=== PATIENT | female | born 1945 | race Caucasian/White ===

== ENCOUNTER → 2017-08-06 15:22 | Outpatient (CLI) | payer OTHER, SELFPAY ==
--- NOTE | 2017-08-06 15:25 | DI.MG.S_ITS ---
BILATERAL DIGITAL SCREENING MAMMOGRAM 3D/2D WITH CAD: 08/06/2017 CLINICAL: Routine screening. Comparison is made to exams dated: 06/24/2016 mammogram, 12/25/2015 mammogram, and 07/20/2015 mammogram - [facility]. The tissue of both breasts is heterogeneously dense. This may lower the sensitivity of mammography. Current study was also evaluated with a Computer Aided Detection (CAD) system. No significant masses, calcifications, or other findings are seen in either breast. There has been no significant interval change. IMPRESSION: NEGATIVE There is no mammographic evidence of malignancy. A 1 year screening mammogram is recommended. NOTE: For mammograms, a report in lay terms will be sent to the patient. Approximately 15% of breast malignancies will not be visualized mammographically. In the management of a palpable breast mass, a negative mammogram must not discourage biopsy of a clinically suspicious lesion. Electronically Signed By: Mehnaz lazcano/petey:08/06/2017 17:25:11 letter sent: Normal Exam ACR BI-RADS Category 1: Negative 3341F
== END ==
PROVIDERS: PCP Family Medicine; Visit Provider Family Medicine
DX: Z12.31 Encounter for screening mammogram for malignant neoplasm of breast (principal)
CPT/HCPCS: 77063; 77067

== ENCOUNTER → 2017-08-21 14:39 | Outpatient (CLI) | payer OTHER, SELFPAY ==
[2017-08-21 15:11] LABS: Hematocrit 36.3 % (36-46); Hemoglobin 12.3 g/dL (12.0-16.0); Mean Corpuscular Volume 76.5 fL (80-100); Platelet Count 143 X10^3/uL (150-400); Red Blood Cell Count 4.75 X10^6/uL (4.0-5.2); Red Cell Distribution Width 14.7 % (11.6-14.8)
[2017-08-21 15:21] LABS: Add Manual Diff / Slide Review YES
[2017-08-21 15:25] LABS: White Blood Cell Count 1.5 X10^3/uL (4.5-11.0)
[2017-08-21 15:38] LABS: Neutrophils Absolute Manual 60 /uL (3000-5900); Total Cells Counted 25
[2017-08-21 15:39] LABS: Anisocytosis 1+
[2017-08-21 15:40] LABS: Smudge Cells 1+
== END ==
PROVIDERS: PCP Family Medicine; Visit Provider Family Medicine
DX: D72.9 Disorder of white blood cells, unspecified (principal)
CPT/HCPCS: 36415; 85025

== ENCOUNTER → 2017-08-24 07:16 | Outpatient (CLI) | payer OTHER, SELFPAY ==
[2017-08-24 08:49] LABS: Hematocrit 36.4 % (36-46); Hemoglobin 12.3 g/dL (12.0-16.0); Mean Corpuscular HGB Conc 33.8 % (30-36); Mean Corpuscular Volume 76.9 fL (80-100); Platelet Count 127 X10^3/uL (150-400); Red Blood Cell Count 4.74 X10^6/uL (4.0-5.2)
[2017-08-24 08:54] LABS: Add Manual Diff / Slide Review YES; White Blood Cell Count 1.3 X10^3/uL (4.5-11.0)
[2017-08-24 09:23] LABS: Neutrophils Absolute Manual 104 /uL (3000-5900); Total Cells Counted 50
[2017-08-24 09:24] LABS: RBC Morphology Normal Morphology
[2017-08-24 18:24] LABS: Monotest Negative (Negative)
== END ==
PROVIDERS: PCP Family Medicine; Visit Provider Family Medicine
DX: D72.9 Disorder of white blood cells, unspecified (principal); M25.50 Pain in unspecified joint
CPT/HCPCS: 36415; 85025; 86318

== ENCOUNTER → 2017-09-30 07:10 | Outpatient (CLI) | payer OTHER, SELFPAY ==
--- NOTE | 2017-09-30 | DI.US.S_ITS ---
PROCEDURE: US ABDOMEN COMPLETE INDICATIONS: SPLENOMEGALY TECHNIQUE: Real-time scanning was performed of the abdominal and retroperitoneal organs, with image documentation. COMPARISON: [facility], CT, CHEST/ABD/PEL WITHOUT CONTRAST, 07/31/2015, 12:20. [facility], CT, THORAX WITHOUT CONTRAST, 05/11/2017, 15:19. FINDINGS: Liver: Liver is normal in size and homogeneous in echotexture. Gallbladder: The gallbladder appears normal Biliary ducts: Intrahepatic bile ducts are non-dilated. Extrahepatic bile duct caliber measures 5.5 mm. Normal is 6-7 mm or less in diameter, or 10 mm or less post-cholecystectomy. Pancreas: Visualized portions of the pancreas are sonographically normal. Spleen: Spleen is enlarged in size at 16.6 cm craniocaudad, and homogeneous in echotexture. Kidneys: Kidneys are normal in size and echotexture. Right kidney measures 10.9 cm long; left kidney measures 11.8 cm long. No hydronephrosis or nephrolithiasis. No solid masses. Aorta: Visualized aorta is normal in caliber at less than 3 cm. Iliacs: Proximal common iliac arteries are normal in caliber at less than 2.5 cm. IVC: Intrahepatic inferior vena cava is patent. Miscellaneous: No free abdominal fluid. IMPRESSION: A craniocaudad length of the spleen is 16.6 cm, above the upper limits of normal at 13 cm. Etiology is uncertain, there is no ascites, no hepatic abnormality is associated. The prior craniocaudad length of the spleen during CT scanning 07/31/15 was 10.0 cm. Dictated by: Osmin Smith M.D. on 09/30/2017 at 8:13 Approved by: Osmin Smith M.D. on 09/30/2017 at 8:16
== END ==
PROVIDERS: PCP Family Medicine; Visit Provider Family Medicine
DX: R16.1 Splenomegaly, not elsewhere classified (principal)
CPT/HCPCS: 76700

== ENCOUNTER → 2018-04-10 08:06 | Outpatient (CLI) | payer OTHER, SELFPAY ==
[2018-04-10 08:25] LABS: Appearance Urine UA CLEAR; Bilirubin Urine UA NEGATIVE (NEGATIVE); Color Urine UA YELLOW; Glucose Urine UA NEGATIVE (Negative); Ketones Urine UA NEGATIVE (NEGATIVE); Leukocyte Esterase Urine UA NEGATIVE (NEGATIVE); Nitrite Urine UA NEGATIVE (Negative); Occult Blood Urine UA TRACE-LYSED (Negative); Protein Urine UA NEGATIVE (Negative); Specific Gravity Urine UA 1.025 (1.000-1.035); Urobilinogen Urine UA 0.2 E.U./dL (0.2)
[2018-04-10 08:28] LABS: Bacteria Urine Moderate (10-30); Culture Indicated Urine Cult Not Indicated; RBC Urine 1-5/HPF (0-5/HPF); Squamous Epithelial Cell Urine 5-10 /HPF; WBC Urine 1-5/HPF (0-5/HPF)
== END ==
PROVIDERS: PCP Family Medicine; Visit Provider Nurse Practitioner Family
DX: R35.0 Frequency of micturition (principal)
CPT/HCPCS: 81001

== ENCOUNTER → 2018-08-09 15:21 | Outpatient (CLI) | payer OTHER, SELFPAY ==
--- NOTE | 2018-08-09 15:23 | DI.MG.S_ITS ---
BILATERAL DIGITAL SCREENING MAMMOGRAM 3D/2D WITH CAD: 08/09/2018 CLINICAL: Routine screening. Comparison is made to exams dated: 08/06/2017 mammogram, 06/24/2016 mammogram, and 06/12/2015 mammogram - [facility]. The tissue of both breasts is heterogeneously dense. This may lower the sensitivity of mammography. Current study was also evaluated with a Computer Aided Detection (CAD) system. No significant masses, calcifications, or other findings are seen in either breast. There has been no significant interval change. IMPRESSION: NEGATIVE There is no mammographic evidence of malignancy. A 1 year screening mammogram is recommended. This exam was interpreted at Station ID: [id number]. NOTE: For mammograms, a report in lay terms will be sent to the patient. Approximately 15% of breast malignancies will not be visualized mammographically. In the management of a palpable breast mass, a negative mammogram must not discourage biopsy of a clinically suspicious lesion. Electronically Signed By: Arpan candelario/petey:08/10/2018 11:56:30 letter sent: Normal Exam ACR BI-RADS Category 1: Negative 3341F
--- NOTE | 2018-08-09 15:25 | DI.CT.S_ITS ---
PROCEDURE: CT CHEST WO CON INDICATIONS: ROUTINE SCREENING LUNG NODULE TECHNIQUE: Noncontrast 2.0-2.5 mm thick sections acquired from the pulmonary apices to the posterior costophrenic angles. 7 mm thick coronal and sagittal MIP reformats were then acquired. A low radiation dose technique was utilized. COMPARISON: [facility], CT, THORAX WITHOUT CONTRAST, 12/03/2015, 16:10. [facility], CT, THORAX WITHOUT CONTRAST, 05/11/2017, 15:19. FINDINGS: Image quality: Diagnostic, given the low radiation dose technique. Lungs and pleura: There is mild bilateral apical scarring. There is moderate centrilobular emphysema with an apical predominance. An ill-defined nodule is redemonstrated at the right cardiac margin which measures 0.9 x 1.0 cm on the current study and measured 0.9 x 1.[address] dated 12/03/15. No new pulmonary nodules. No acute airspace opacities. No pleural effusion or pneumothorax. Mediastinum: Heart size is normal. No pericardial effusion. No mediastinal adenopathy by size criteria. Thoracic aorta and central pulmonary arteries are normal in size. Scattered atheromatous calcifications are present within the aortic arch. Esophagus is normal in caliber. No hiatal hernia. Bones and chest wall: No suspicious bony lesions. No vertebral body compression fractures. No axillary or supraclavicular adenopathy by size criteria. Thyroid gland is unremarkable. Abdomen: Visualized upper abdomen solid organs and bowel loops appear normal in the absence of contrast. IMPRESSION: 1. Stable appearance of a ill-defined nodule at the anterior right lung base when compared to study from 12/03/15. 2. Moderate centrilobular emphysema. Fleischner Society criteria for SOLID lung nodule followup. Nodule size (mm)Low-risk patientHigh-risk patient<6 (single or multiple)No routine followup.Optional CT at 12 months. 6-8 (single or multiple)CT at 6-12 months, then optional CT at 18-24 mo.CT at 6-12 months, then CT at 18-24 months. >8 (single)CT at 3 months, PET-CT, or biopsy. Same as for low-risk pts. >8 (multiple)CT at 3-6 months, then optional CT at 18-24 mo.CT at 3-6 months, then CT at 18-24 months. Fleischner Society criteria for SUB-SOLID lung nodule followup. Solitary pure ground-glass nodules<6 mm (ground glass or part solid)No followup needed. 6 mm or larger (ground glass)CT at 6-12 months to confirm persistence, then CT every 2 years until 5 years.6 mm or larger (part solid)CT at 3-6 months to confirm persistence, then annual CT until 5 years if unchanged and solid component remains <6 mm. Multiple sub-solid nodules<6 mmCT at 3-6 months, then CT consider at 2 & 4 years for high risk patients. [address] at 3-6 months. Subsequent management based on most suspicious lesions. Recommendations do not apply to lung cancer screening, patients with immunosuppression, or patients with known primary cancer. Dictated by: Mehnaz Espitia M.D. on 08/09/2018 at 17:17 Approved by: Mehnaz Espitia M.D. on 08/09/2018 at 17:24
== END ==
PROVIDERS: PCP Family Medicine; Visit Provider Family Medicine
DX: Z12.31 Encounter for screening mammogram for malignant neoplasm of breast (principal); R91.1 Solitary pulmonary nodule; J43.2 Centrilobular emphysema
CPT/HCPCS: 71250; 77063; 77067

== ENCOUNTER → 2019-04-16 10:45 | Outpatient (CLI) | payer OTHER, SELFPAY ==
--- NOTE | 2019-04-16 | DI.RAD.S_ITS ---
PROCEDURE: XR CHEST 2V INDICATIONS: SOB/DYSPNEA ON EXERTION TECHNIQUE: 2 views of the chest were acquired. COMPARISON: None. FINDINGS: Surgical changes and devices: None. Lungs and pleura: Lungs are clear. No pleural effusions or pneumothorax. Mediastinum: Mediastinal contours are normal. Heart size is normal. Bones and chest wall: No suspicious bony abnormalities. Soft tissues appear unremarkable. IMPRESSION: No acute cardiopulmonary findings. Dictated by: Mehnaz Espitia M.D. on 04/16/2019 at 10:38 Approved by: Mehnaz Espitia M.D. on 04/16/2019 at 10:39
== END ==
PROVIDERS: PCP Family Medicine; Referring Provider Family Medicine; Visit Provider Family Medicine
DX: R06.00 Dyspnea, unspecified (principal); R06.02 Shortness of breath
CPT/HCPCS: 71046

== ENCOUNTER → 2019-06-28 14:00 | Outpatient (CLI) | payer OTHER, SELFPAY ==
[2019-06-29 13:23] LABS: COVID19 Sendout NOT DETECTED
== END ==
PROVIDERS: PCP Family Medicine; Visit Provider Physician Assistant
DX: Z01.818 Encounter for other preprocedural examination (principal); Z20.828 Contact with and (suspected) exposure to other viral communicable diseases
CPT/HCPCS: 87635

== ENCOUNTER → 2019-07-23 11:37 | Outpatient (CLI) | payer OTHER, SELFPAY ==
[2019-07-24 01:52] LABS: COVID19 Sendout Not Detected (Not Detect)
== END ==
PROVIDERS: PCP Family Medicine; Visit Provider Physician Assistant
DX: Z01.818 Encounter for other preprocedural examination (principal)
CPT/HCPCS: 87635

== ENCOUNTER 2019-07-26 08:55 | Day surgery (SDC) | payer OTHER, SELFPAY ==
[2019-07-26 09:50] VITALS: BP 158/76; PULSE 70; RESP 16; TEMP 36.1; O2SAT 97; BMI 25.8
[2019-07-26] MEDS: CATARACT EYE COMPOUND (10 DROPS/SYRINGE) 3 DROPS EYE-OP (10:02)
[2019-07-26] MEDS: PROPARACAINE 0.5% OPHTH SOL 2 DROPS EYE-OP (10:02)
--- NOTE | 2019-07-26 10:28 | PM.PREOP ---
Pre-operative Note Interval Note History & Physical reviewed/Exam performed by Physician: Yes Changes to H&P: No
--- NOTE | 2019-07-26 10:28 | PM.OP.1 ---
Operative Date/Time/Diagnoses Pre-op diagnosis: Nuclear cataract right eye Procedure & Clinicians Procedure: Cataract Surgery Same procedure as scheduled: Yes Surgeon: Zaheer Case Anesthesia Type: MAC +/- and Sedation Operative Notes Procedure in detail: Patient brought to the operating suite. Tetracaine drops placed in the right eye. The marking instrument was used to emy the vertical and horizontal meridians. Patient was prepped and draped in sterile manner. Wire lid speculum was placed in the eye. marking instrument was used to emy the 80 degree meridian. Betadine drops were placed on the eye. This was irrigated. Lidocaine jelly was placed on the eye. A paracentesis port was created with a side-port blade. 0.1 mL 1% preservative free lidocaine was injected into the anterior chamber. The anterior chamber was deepened with viscoelastic. 2.6 mm keratome was used to create a temporal clear corneal incision. Cystotome and Utrata forceps were used to create continuous tear capsulorrhexis. Balanced salt solution was used to hydro dissect the nucleus. The phacoemulsification handpiece was inserted and the nucleus was removed using the stop and chop technique. The irrigation aspiration handpiece was inserted and the remaining cortex was removed. Anterior chamber was deepened with viscoelastic. An Diaz [id number] intraocular lens with a power of 10.0 was injected into the capsular bag. Irrigation aspiration handpiece was inserted and the remaining viscoelastic was removed. The lens was rotated to the 80 degree meridian. Incision was hydrated with balanced salt solution and found to be leak free with pressure with Weck-Beth sponges. 0.1 mL Vigamox injected anterior chamber. 0.3 mL Kenalog 10 mg was injected subconjunctivally. Lid speculum was removed. The patient left the operating room in excellent condition. Complications: none Post-operative Condition: stable Disposition: same day surgery
[2019-07-26] MEDS: PHENYLEPHRINE/LIDOCAINE VIAL (OR) 0.2 ML EYE-OP (10:49)
[2019-07-26] MEDS: MOXIFLOXACIN INJ 5 MG/ML VIAL EYE-OP (10:49)
[2019-07-26] MEDS: TRIAMCINOLONE 50 MG/5 ML VIAL INJ (10:49)
[2019-07-26] MEDS: TETRACAINE 0.5% OPHTH DROPS 4 ML 2 DROPS EYE-OP (10:50)
[2019-07-26] MEDS: BALANCED SALT IRRIG SOLN NO.2 500 ML, EPINEPHrine 1 MG IRR (10:50)
[2019-07-26] MEDS: CHONDROIDTIN/SOD HYALURONATE 1.05 ML SYRINGE INTRAOCULA (10:50)
[2019-07-26] MEDS: LIDOCAINE JELLY 2% 5 ML 1 APPLIC TOP (10:50)
[2019-07-26 11:03] VITALS: BP 143/81; PULSE 77; RESP 16; TEMP 36.6; O2SAT 100
== END 2019-07-26 11:20 | disposition home or self-care (01) ==
PROVIDERS: PCP Family Medicine; Referring Provider Ophthalmology; Visit Provider Ophthalmology
PROC: (CPT 66984; principal; 2019-07-26 10:45)
DX: H25.11 Age-related nuclear cataract, right eye (principal)
CPT/HCPCS: 66984; J0171; J2250; J3010; J3301; V2787

== ENCOUNTER → 2019-08-13 11:17 | Outpatient (CLI) | payer OTHER, SELFPAY ==
[2019-08-14 07:57] LABS: COVID19 Sendout Not Detected (Not Detect)
== END ==
PROVIDERS: PCP Family Medicine; Visit Provider Nurse Practitioner
DX: Z01.812 Encounter for preprocedural laboratory examination (principal)
CPT/HCPCS: 87635

== ENCOUNTER 2019-08-16 06:34 | Day surgery (SDC) | payer OTHER, SELFPAY ==
[2019-08-16] MEDS: PROPARACAINE 0.5% OPHTH SOL 2 DROPS EYE-OP (07:06)
[2019-08-16 07:08] VITALS: BP 179/77; PULSE 78; RESP 16; TEMP 36.4; O2SAT 94
[2019-08-16] MEDS: CATARACT EYE COMPOUND (10 DROPS/SYRINGE) 3 DROPS EYE-OP (07:09)
[2019-08-16 07:10] VITALS: BMI 25.8
[2019-08-16] MEDS: CHONDROIDTIN/SOD HYALURONATE 1.05 ML SYRINGE INTRAOCULA (07:52)
[2019-08-16] MEDS: LIDOCAINE JELLY 2% 5 ML 1 APPLIC TOP (07:52)
[2019-08-16] MEDS: MOXIFLOXACIN INJ 5 MG/ML VIAL EYE-OP (07:53)
[2019-08-16] MEDS: TRIAMCINOLONE 50 MG/5 ML VIAL INJ (07:54)
[2019-08-16] MEDS: PHENYLEPHRINE/LIDOCAINE VIAL (OR) 0.2 ML EYE-OP (07:54)
[2019-08-16] MEDS: BALANCED SALT IRRIG SOLN NO.2 500 ML, EPINEPHrine 1 MG IRR (07:54)
[2019-08-16] MEDS: TETRACAINE 0.5% OPHTH DROPS 4 ML 2 DROPS EYE-OP (07:54)
--- NOTE | 2019-08-16 08:06 | P.OP_ITS ---
Operative Date/Time/Diagnoses Pre-op diagnosis: Nuclear Cataract Left eye Post-op diagnosis: same Procedure & Clinicians Same procedure as scheduled: Yes Surgeon: Zaheer Case Anesthesia Type: MAC +/- and Sedation Operative Notes Procedure in detail: Patient brought to the operating suite. Tetracaine drops placed in the left eye. Marking instrument was used to emy the vertical and horizontal meridians. Patient was prepped and draped in sterile manner. Wire lid speculum was placed in the eye. Marking instrument was used to emy the 130 degree meridian. Betadine drops were placed on the eye. This was irrigated. Lidocaine jelly was placed on the eye. A paracentesis port was created with a side-port blade. 0.1 mL 1% preservative free lidocaine was injected into the anterior chamber. The anterior chamber was deepened with viscoelastic. 2.6 mm keratome was used to create a temporal clear corneal incision. Cystotome and Utrata forceps were used to create continuous tear capsulorrhexis. Balanced salt solution was used to hydro dissect the nucleus. The phacoemulsification handpiece was inserted and the nucleus was removed using the stop and chop te chnique. The irrigation aspiration handpiece was inserted and the remaining cortex was removed. Anterior chamber was deepened with viscoelastic. An Diaz [id number] intraocular lens with a power of 10.5 was injected into the capsular bag. Irrigation aspiration handpiece was inserted and the remaining viscoelastic was removed. The lens was rotated to the 130 degree meridian. Incision was hydrated with balanced salt solution and found to be leak free with pressure with Weck-Beth sponges. 0.1 mL Vigamox injected anterior chamber. 0.3 mL Kenalog 10 mg was injected subconjunctivally. Lid speculum was removed. The patient left the operating room in excellent condition. Complications: none Post-operative Condition: stable Disposition: same day surgery
--- NOTE | 2019-08-16 08:06 | PM.PREOP ---
Pre-operative Note Interval Note History & Physical reviewed/Exam performed by Physician: Yes Changes to H&P: No
[2019-08-16 08:08] VITALS: BP 141/77; PULSE 75; RESP 14; TEMP 36; O2SAT 94
== END 2019-08-16 08:23 | disposition home or self-care (01) ==
PROVIDERS: PCP Family Medicine; Referring Provider Ophthalmology; Visit Provider Ophthalmology
PROC: (CPT 66984; principal; 2019-08-16 07:45)
DX: H25.12 Age-related nuclear cataract, left eye (principal); E03.9 Hypothyroidism, unspecified
CPT/HCPCS: 66984; J0171; J2250; J3010; J3301; V2787

== ENCOUNTER → 2020-01-12 13:12 | Outpatient (CLI) | payer OTHER, SELFPAY | PROVIDERS: PCP Family Medicine; Referring Provider Family Medicine; Visit Provider Family Medicine | DX: M81.0 Age-related osteoporosis without current pathological fracture (principal); Z78.0 Asymptomatic menopausal state | CPT/HCPCS: 77080 ==

== ENCOUNTER → 2020-08-30 10:06 | Outpatient (CLI) | payer OTHER, SELFPAY ==
--- NOTE | 2020-08-30 10:07 | DI.MG.S_ITS ---
BILATERAL DIGITAL SCREENING MAMMOGRAM 3D/2D WITH CAD: 08/30/2020 CLINICAL: Routine screening. Comparison is made to exams dated: 08/09/2018 mammogram, 08/06/2017 mammogram, and 06/24/2016 mammogram - [facility]. There are scattered fibroglandular elements in both breasts. Current study was also evaluated with a Computer Aided Detection (CAD) system. There is a biopsy clip in the left breast. No significant masses, calcifications, or other findings are seen in either breast. There has been no significant interval change. IMPRESSION: NEGATIVE There is no mammographic evidence of malignancy. A 1 year screening mammogram is recommended. This exam was interpreted at Station ID: [id number]. NOTE: For mammograms, a report in lay terms will be sent to the patient. Approximately 15% of breast malignancies will not be visualized mammographically. In the management of a palpable breast mass, a negative mammogram must not discourage biopsy of a clinically suspicious lesion. Electronically Signed By: Julissa arnold/petey:08/30/2020 10:50:00 letter sent: Normal Exam ACR BI-RADS Category 1: Negative 3341F
== END ==
PROVIDERS: PCP Family Medicine; Referring Provider Family Medicine; Visit Provider Family Medicine
DX: Z12.31 Encounter for screening mammogram for malignant neoplasm of breast (principal)
CPT/HCPCS: 77063; 77067

== ENCOUNTER → 2021-04-22 16:59 | Outpatient (CLI) | payer OTHER, SELFPAY ==
--- NOTE | 2021-04-22 17:02 | DI.RAD.S_ITS ---
PROCEDURE: XR CHEST 2V INDICATIONS: ACUTE COUGH TECHNIQUE: 2 views of the chest were acquired. COMPARISON: [facility], CR, XR CHEST 2V, 04/16/2019, 10:59. FINDINGS: Surgical changes and devices: Left breast or axillary clip. Lungs and pleura: Bibasilar atelectasis. Prominent lung volumes. Prominent interstitial markings. No pleural effusions or pneumothorax. Mediastinum: Mediastinal contours are normal. Heart size is normal. Bones and chest wall: No suspicious bony abnormalities. Soft tissues appear unremarkable. IMPRESSION: No consolidation identified to suggest pneumonia. Bibasilar atelectasis. Prominent lung volumes. Emphysematous change. Dictated by: Trace Mackey M.D. on 04/22/2021 at 17:03 Approved by: Trace Mackey M.D. on 04/22/2021 at 17:05
== END ==
PROVIDERS: PCP Family Medicine; Referring Provider Family Medicine; Visit Provider Family Medicine
DX: R05.1 Acute cough (principal); J98.11 Atelectasis
CPT/HCPCS: 71046

== ENCOUNTER → 2021-06-26 10:54 | Outpatient (CLI) | payer OTHER, SELFPAY ==
[2021-06-26 11:43] LABS: COVID19 -Nasal RAPID Negative (Negative)
== END ==
PROVIDERS: PCP Family Medicine; Referring Provider Internal Medicine; Visit Provider Internal Medicine
DX: Z20.822 Contact with and (suspected) exposure to COVID-19 (principal)
CPT/HCPCS: 87635; C9803

== ENCOUNTER → 2021-06-27 10:45 | Outpatient (CLI) | payer OTHER, SELFPAY ==
--- NOTE | 2021-07-14 13:32 | PM.PFT.1 ---
Pulmonary Function Test Referral & Results Date Patient Seen: 06/27/21 Requesting provider: Letty Padgett Results: The spirometry demonstrates an FVC of 2.59 L which is 93% of predicted. The FEV1 was measured at 1.02 L which is 40% of predicted. The FEV1/FVC ratio was 39 which is 52% of predicted. Following the administration of bronchodilator there was no notable change Lung volumes show an SVC of 2.26 L which is 82% of predicted. The diffusing capacity was measured at 9.35 which is 38% of predicted. No hemoglobin value was provided, so no correction for potential anemia could be made, if appropriate. The maximum voluntary ventilation was reduced severely Interpretation: This study demonstrates severe obstructive lung disease based on reduction FEV1 and FEV1/FVC ratio. FEV1 is nearly 1 L. There is no evidence of significant benefit following bronchodilator There is a mild reduction in lung volumes suggesting mild restrictive lung disease There is a severe reduction in diffusing capacity, suggesting significant capillary alveolar disease, this also suggests the possibility patient is hypoxic at times on room air
== END ==
PROVIDERS: PCP Family Medicine; Referring Provider Family Medicine; Visit Provider Family Medicine
DX: R05.1 Acute cough (principal); R91.8 Other nonspecific abnormal finding of lung field; Z87.891 Personal history of nicotine dependence; J98.8 Other specified respiratory disorders
CPT/HCPCS: 94060; 94726; 94729

== ENCOUNTER → 2021-09-10 10:25 | Outpatient (CLI) | payer OTHER, SELFPAY ==
--- NOTE | 2021-09-10 | DI.CT.S_ITS ---
PROCEDURE: CT CHEST W CON INDICATIONS: Chronic obstructive pulmonary disease, unspecified TECHNIQUE: After the administration of intravenous contrast, 5 mm thick sections acquired from the pulmonary apices to the posterior costophrenic angles. 1 mm axial lung, 5 mm thick coronal and sagittal reformats and 7 mm axial MIP were acquired. For radiation dose reduction, the following was used: automated exposure control, adjustment of mA and/or kV according to patient size. COMPARISON: [facility], CT, CT CHEST [facility], 08/09/2018, 15:43. FINDINGS: Image quality: Excellent. Lungs and pleura: There is moderate to severe centrilobular emphysema with an apical predominance. This is similar in extent to the comparison CT dated August 09, 2018. No pulmonary nodules or acute airspace opacities. Mediastinum: Heart size is normal. No pericardial effusion. No mediastinal or hilar adenopathy by size criteria. Thoracic aorta and central pulmonary arteries are normal in size. Scattered atheromatous calcifications are present within the aortic arch. Esophagus is normal in caliber. No hiatal hernia. Bones and chest wall: No suspicious bony lesions. No vertebral body compression fractures. No axillary or supraclavicular adenopathy by size criteria. Thyroid gland is unremarkable . Abdomen: Visualized upper abdominal solid organs appear normal. Upper abdominal bowel loops are normal in caliber. IMPRESSION: 1. Moderate to severe centrilobular emphysema overall similar in extent to the 2019 study. No acute pulmonary findings. Dictated by: Mehanz Espitia M.D. on 09/10/2021 at 13:33 Approved by: Mehnaz Espitia M.D. on 09/10/2021 at 13:36
[2021-09-10 11:09] LABS: BUN Creatinine Ratio 26.9 (6-22); Blood Urea Nitrogen 21 mg/dL (7-17); Calcium 9.2 mg/dL (8.4-10.2); Carbon Dioxide 28 mmol/L (22-32); Chloride 102 mmol/L (98-107); Estimated Glomerular Filt Rate > 60 mL/min (>60); Glucose 102 mg/dL (80-110); HEMOLYSIS < 15 (0-50); Potassium 4.1 mmol/L (3.4-5.1); Sodium 137 mmol/L (137-145)
== END ==
PROVIDERS: PCP Family Medicine; Referring Provider Family Medicine; Visit Provider Family Medicine
DX: D46.9 Myelodysplastic syndrome, unspecified (principal); J43.2 Centrilobular emphysema; R91.8 Other nonspecific abnormal finding of lung field
CPT/HCPCS: 36415; 71260; 80048; Q9967

== ENCOUNTER → 2022-05-16 | Outpatient (CLI) | payer OTHER, SELFPAY ==
--- NOTE | 2022-05-16 | DI.RAD.S_ITS ---
Bone Density Report Name: RAVINDRA FUENTES Age: 76 Sex: Female Ethnicity: White Date of : 1945 Indication: postmenopausal osteoporosis; prior fracture; Referring Provider: SANDRA SHARMA Study: Bone densitometry was performed. Exam Date: May 16, 2022 Accession number: [id number] Bone Density: Region BMD T-score Z-score Classification AP Spine(L1-L4) 0.777 -2.5 0.0 Osteoporosis Femoral Neck (Left) 0.478 -3.3 -1.2 Osteoporosis Total Hip (Left) 0.622 -2.6 -0.8 Osteoporosis Total Forearm (Left) 0.436 -2.7 0.0 Osteoporosis 1/3 Forearm (Left) 0.510 -3.1 -0.3 Osteoporosis UD Forearm (Left) 0.321 -2.1 -0.1 Osteopenia World Health Organization criteria for BMD impression classify patients as: Normal (T-score at or above -1.0), Osteopenia (T-score between -1.0 and -2.5), or Osteoporosis (T-score at or below -2.5). 10-year Fracture Risk: FRAX not reported because: Some T-score for Spine Total or Hip Total or Femoral Neck at or below -2.5 Prior hip or vertebral fracture Previous Exams: -- Region Exam Age BMD T-score BMD Change BMD Change Date g/cm2 vs Baseline vs Previous -- AP Spine (L1-L4) 05/16/2022 76 0.777 -2.5 -0.019 (-2.4%)# -0.019 (-2.4%)# 01/12/2020 74 0.796 -2.3 Total Hip(Left) 05/16/2022 76 0.622 -2.6 0.025 (4.1%)# 0.025 (4.1%)# 01/12/2020 74 0.598 -2.8 -- *Denotes significance at 95% confidence level, LSC for AP Spine = 0.022 g/cm2, LSC for Total Hip = 0.027 g/cm2 # Denotes dissimilar scan types or analysis methods Impression: The patient has established osteoporosis, based on the Left Femoral Neck T-score and the existence of a prior fracture. The patient has risk factors, including: previous fracture. No significant bone loss was observed. Discussion: HIGH RISK OF FRACTURE. BONE DENSITY IS UNDESIRABLY LOW AT ONE OR MORE SKELETAL SITES, CONSISTENT WITH POSTMENOPAUSAL OSTEOPOROSIS. This patient's lowest T-score, in a patient who has previously fractured, meets the World Health Organization's (WHO) criteria for severe osteoporosis. In untreated patients, the risk of osteoporotic fracture increases approximately two-fold for each 1.0 SD decrease in T-score. Low bone density is not the only risk factor for fracture; also consider factors such as patient's age, frailty or poor health, risk of falling, risk of injury, previous osteoporotic fracture, family history of osteoporosis, cigarette smoking, low body weight, etc. Not everyone with low bone mineral density has osteoporosis; osteomalacia and other metabolic bone disorders should also be considered. Patients who have osteoporosis should be evaluated for specific diseases and conditions (secondary causes) that may cause or contribute to bone loss. The [place] [employer] (AACE) and National Osteoporosis Foundation (NOF) recommend pharmacologic intervention for all postmenopausal women with a previous hip or vertebral fracture and a T-score in this range. The patient should follow a healthful lifestyle (good nutrition with adequate calcium and vitamin D, and appropriate weight-bearing exercise). Follow-Up: Consider a repeat BMD and Vertebral Fracture Assessment (VFA) exam in 2 years or sooner if medically necessary, to reassess this patient's status. Reported by: KAMILLE AVILA M.D. on 05/16/2022 11:19:00 AM.
== END ==
LOC: RAD 10:45
PROVIDERS: PCP Family Medicine; Referring Provider Family Medicine; Visit Provider Family Medicine
DX: M81.0 Age-related osteoporosis without current pathological fracture (principal)
CPT/HCPCS: 77080

== ENCOUNTER 2022-08-05 09:34 | Emergency (ER) | payer OTHER, SELFPAY ==
[2022-08-05] VITALS (10 sets, daily range): BP systolic 140–154; BP diastolic 64–94; PULSE 111–129; RESP 15–26; TEMP 36.9; O2SAT 91–92; BMI 27.3
--- NOTE | 2022-08-05 10:15 | ED_ITS ---
HPI - Nausea/Vomiting/Diarrhea <Clarke Rojo PA-C - Last Filed: 08/05/22 12:50> General Chief complaint: Nausea/Vomiting/Diarrhea Stated complaint: D/ T-2 Time Seen by Provider: 08/05/22 10:04 Source: patient Mode of arrival: Ambulatory History of Present Illness HPI Narrative: 76-year-old female with past medical history rheumatoid arthritis, COPD, hyperlipidemia presents to the ED with 2 days of diarrhea. Patient states that she has experienced fevers and chills, diarrhea, nausea, lightheadedness. Patient denies chest pain, shortness of breath, vomiting, dysuria, abdominal pain, flank pain, dizziness, syncope. Patient states that she ate a hamburger at a restaurant on the day that her diarrhea began, and no other suspicious foods. Patient states she doctor her doctor this morning who advised her to go to the ED to be evaluated for dehydration. Patient is on methotrexate and prednisone for the rheumatoid arthritis, also states that her white blood count is always low. Related Data Home Medications Medication Instructions Recorded Confirmed cholecalciferol (vitamin D3) 50 50 mcg PO DAILY ##0 09/10/12 08/16/19 mcg (2,000 unit) capsule (Vitamin D3) flaxseed oil 1,000 mg capsule 1,000 mg PO DAILY ##0 09/10/12 08/16/19 levothyroxine 75 mcg capsule 75 mcg PO DAILY 07/21/17 08/16/19 Previous Rx's Medication Instructions Recorded ondansetron 4 mg disintegrating 4 mg PO Q8H PRN nausea and 08/05/22 tablet vomiting #14 tabs Allergies Allergy/AdvReac Type Severity Reaction Status Date / Time amoxicillin Allergy Intermediate rash Verified 08/05/22 09:42 Review of Systems <Clarke Rojo PA-C - Last Filed: 08/05/22 12:50> Review of Systems ROS Unobtainable: All systems reviewed & are unremarkable except as noted in HPI and below Constitutional Constitutional: Reports chills, Reports fatigue, Reports fever(s), Denies frequent falls, Denies lethargy and Denies weakness Eyes Eyes: Denies change in vision, Denies eye discharge, Denies irritation and Denies loss of vision ENT Ears, Nose, Mouth, and Throat: Denies change in voice, Denies dizziness, Denies neck pain, Denies sore throat and Denies throat swelling Cardiovascular Cardiovascular: Denies chest pain, Denies irregular heart rhythm, Reports lightheadedness, Denies palpitations, Denies dyspnea, Denies dyspnea on exertion and Denies orthopnea Respiratory Respiratory: Denies cough, Denies dyspnea, Denies dyspnea on exertion and Denies wheezing Gastrointestinal Gastrointestinal: Denies abdominal pain, Denies change in bowel habits, Reports diarrhea, Reports nausea and Denies vomiting Genitourinary Genitourinary: Denies hematuria, Denies flank pain, Denies urinary incontinence and Denies urinary urgency Musculoskeletal Musculoskeletal: Denies back pain, Denies muscle weakness, Denies neck pain, Denies numbness and Denies tingling Integumentary/Breasts Skin/Breast: Denies pruritus, Denies erythema, Denies rash and Denies wounds Neurologic Neurologic: Denies behavioral changes, Denies confusion, Denies dizziness, Denies frequent falls, Denies loss of vision, Denies numbness, Denies tingling and Denies weakness Psychiatric Psychiatric: Denies anxiety, Denies behavioral changes, Denies confusion, Denies depression, Denies homicidal ideation and Denies suicidal ideation Endocrine Endocrine: Reports fatigue, Denies flushing and Denies palpitations Hematologic/Lymphatic Hematologic/Lymphatic: Denies easy bruising Allergic/Immunologic Allergic/Immunologic: Denies urticaria, Denies throat swelling and Denies wheezing Patient History <Clarke Rojo PA-C - Last Filed: 08/05/22 12:50> Medical History Hypothyroidism Surgical History S/P hip replacement S/P hysterectomy Social History household members: spouse Smoking Status: Never smoker alcohol intake: never Smoking Status: Never smoker alcohol intake frequency: holidays/special occasions only Substance Use Type: does not use Exam <Clarke Rojo PA-C - Last Filed: 08/05/22 12:50> Narrative Exam Narrative: Const General:?cooperative, healthy appearing and comfortable [facility] Head:?normal to inspection Ears:?hearing grossly normal bilaterally Nose:?external nose normal Face and sinus:?normal facial exam and sinuses nontender Mouth:?oral mucosae normal Throat:?posterior oropharynx normal Eyes General:?appearance normal, both eyes and all related structures Neck Neck:?normal visual inspection and no lymphadenopathy noted Resp Effort & Inspection:?normal respiratory effort Auscultation:?clear to auscultation bilaterally Cardio Rate:?regular rate Rhythm:?regular rhythm GI Abdomen is soft, nondistended, nontender to palpation. There is no CVA t enderness. Neuro General:?patient alert, patient awake and patient oriented x3 Initial Vital Signs Initial Vital Signs: Vital Signs Temperature 98.5 F 08/05/22 09:42 Pulse Rate 129 H 08/05/22 09:42 Respiratory Rate 15 08/05/22 09:42 Blood Pressure 145/94 H 08/05/22 09:42 Pulse Oximetry 92 08/05/22 09:42 Oxygen Delivery Method Room Air 08/05/22 09:42 <Yuliana Zelaya DO - Last Filed: 08/05/22 13:59> Initial Vital Signs Initial Vital Signs: Vital Signs Temperature 98.5 F 08/05/22 09:42 Pulse Rate 129 H 08/05/22 09:42 Respiratory Rate 15 08/05/22 09:42 Blood Pressure 145/94 H 08/05/22 09:42 Pulse Oximetry 92 08/05/22 09:42 Oxygen Delivery Method Room Air 08/05/22 09:42 Course <Clarke Rojo PA-C - Last Filed: 08/05/22 12:50> Orders Ordered: ED Orders 08/05/22 09:50 CBC Auto Diff [Complete Blood Count AUTO DIFF] Stat CMP [Comprehensive Metabolic Panel] Stat Lactate (Lactic Acid) Stat Lipase Stat Discontinued Medications Sodium Chloride (Normal Saline 0.9%) 1,000 mls @ 1,000 mls/hr IV BOLUS ONE Stop: 08/05/22 11:11 Last Infusion: 08/05/22 12:07 Dose: 0 mls/hr Documented By: Admin: 08/05/22 10:26 Dose: 1,000 mls/hr Documented By: ANDREINA Ondansetron HCl (Ondansetron 4 Mg/2 Ml Inj) 4 mg IV NOW ONE Stop: 08/05/22 10:13 Last Admin: 08/05/22 10:26 Dose: 4 mg Documented By: ANDREINA Vital Signs Vital signs: Vital Signs - 8 hr 08/05/22 09:42 08/05/22 09:46 08/05/22 09:51 Temperature 98.5 F Pulse Rate 129 H 123 H 120 H Respiratory Rate 15 15 Blood Pressure 145/94 H Pulse Oximetry 92 92 92 Oxygen Delivery Method Room Air 08/05/22 09:51 08/05/22 10:00 08/05/22 10:00 Temperature Pulse Rate 114 H Respiratory Rate 16 Blood Pressure 154/72 H 148/64 H Pulse Oximetry 91 Oxygen Delivery Method 08/05/22 10:15 08/05/22 10:15 08/05/22 10:30 Temperature Pulse Rate 115 H 111 H Respiratory Rate 20 20 Blood Pressure 146/67 H Pulse Oximetry 91 92 Oxygen Delivery Method 08/05/22 11:00 08/05/22 11:22 08/05/22 11:22 Temperature Pulse Rate 115 H 120 H Respiratory Rate 26 H 21 Blood Pressure 149/71 H Pulse Oximetry 91 92 Oxygen Delivery Method 08/05/22 11:30 08/05/22 11:30 08/05/22 11:45 Temperature Pulse Rate 120 H Respiratory Rate 20 Blood Pressure 149/68 H 140/68 Pulse Oximetry 91 Oxygen Delivery Method 08/05/22 11:45 Temperature Pulse Rate 122 H Respiratory Rate 21 Blood Pressure Pulse Oximetry 92 Oxygen Delivery Method <Yuliana Zelaya, - Last Filed: 08/05/22 13:59> Orders Ordered: ED Orders 08/05/22 09:50 CBC Auto Diff [Complete Blood Count AUTO DIFF] Stat CMP [Comprehensive Metabolic Panel] Stat Lactate (Lactic Acid) Stat Lipase Stat Discontinued Medications Sodium Chloride (Normal Saline 0.9%) 1,000 mls @ 1,000 mls/hr IV BOLUS ONE Stop: 08/05/22 11:11 Last Infusion: 08/05/22 12:07 Dose: 0 mls/hr Documented By: Admin: 08/05/22 10:26 Dose: 1,000 mls/hr Documented By: ANDREINA Ondansetron HCl (Ondansetron 4 Mg/2 Ml Inj) 4 mg IV NOW ONE Stop: 08/05/22 10:13 Last Admin: 08/05/22 10:26 Dose: 4 mg Documented By: ANDREINA Vital Signs Vital signs: Vital Signs - 8 hr 08/05/22 09:42 08/05/22 09:46 08/05/22 09:51 Temperature 98.5 F Pulse Rate 129 H 123 H 120 H Respiratory Rate 15 15 Blood Pressure 145/94 H Pulse Oximetry 92 92 92 Oxygen Delivery Method Room Air 08/05/22 09:51 08/05/22 10:00 08/05/22 10:00 Temperature Pulse Rate 114 H Respiratory Rate 16 Blood Pressure 154/72 H 148/64 H Pulse Oximetry 91 Oxygen Delivery Method 08/05/22 10:15 08/05/22 10:15 08/05/22 10:30 Temperature Pulse Rate 115 H 111 H Respiratory Rate 20 20 Blood Pressure 146/67 H Pulse Oximetry 91 92 Oxygen Delivery Method 08/05/22 11:00 08/05/22 11:22 08/05/22 11:22 Temperature Pulse Rate 115 H 120 H Respiratory Rate 26 H 21 Blood Pressure 149/71 H Pulse Oximetry 91 92 Oxygen Delivery Method 08/05/22 11:30 08/05/22 11:30 08/05/22 11:45 Temperature Pulse Rate 120 H Respiratory Rate 20 Blood Pressure 149/68 H 140/68 Pulse Oximetry 91 Oxygen Delivery Method 08/05/22 11:45 Temperature Pulse Rate 122 H Respiratory Rate 21 Blood Pressure Pulse Oximetry 92 Oxygen Delivery Method MDM - Nausea/Vomiting/Diarrhea <Clarke Rojo PA-C - Last Filed: 08/05/22 12:50> Lab Data 08/05/22 09:50 08/05/22 09:50 Labs: Lab Results 08/05/22 08/05/22 08/05/22 Range/Units 09:50 09:50 09:50 WBC 5.4 (4.5-11.0) X10^3/uL RBC 4.88 (4.0-5.2) X10^6/uL Hgb 13.5 (12.0-16.0) g/dL Hct 39.6 (36-46) % MCV 81.1 (80-100) fL MCH 27.6 (26-34) PG MCHC 34.0 (30-36) % RDW 14.3 (11.6-14.8) % Plt Count 56 L (150-400) X10^3/uL Neut % (Auto) 80.0 H (50-75) % Lymph % (Auto) 15.9 L (25-40) % [place] % (Auto) 3.9 (3-14) % Eos % (Auto) 0.1 L (2-4) % Baso % (Auto) 0.1 (0-2) % Neut # (Auto) 4300 (2321-2626) /uL Lymph # (Auto) 900 L (8377-3824) /uL [place] # (Auto) 200 (0-900) /uL Eos # (Auto) 0 (0-450) /uL Baso # (Auto) 0 (0-100) /uL Sodium 135 L (137-145) mmol/L Potassium 3.9 (3.4-5.1) mmol/L Chloride 101 (98-107) mmol/L Carbon Dioxide 25 (22-32) mmol/L BUN 19 H (7-17) mg/dL Creatinine 0.73 (0.52-1.04) mg/dL Estimated GFR > 60 (>60) mL/min BUN/Creatinine Ratio 26.0 H (6-22) Glucose 125 H (80-110) mg/dL Lactate 1.7 (0.7-2.1) mmol/L Calcium 8.7 (8.4-10.2) mg/dL Total Bilirubin 1.2 (0.2-1.3) mg/dL AST 27 (14-36) IU/L ALT 22 (<35) IU/L Alkaline Phosphatase 111 (38-126) U/L Total Protein 7.1 (6.3-8.2) g/dL Albumin 3.9 (3.5-5.0) g/dL Globulin 3.2 (1.7-4.1) g/dL Albumin/Globulin Ratio 1.2 (1.0-2.8) Lipase 41 (23-300) U/L [facility] Narrative Medical decision making narrative: 76-year-old female with past medical history rheumatoid arthritis, COPD, hyperlipidemia presents to the ED with 2 days of diarrhea. Physical exam reassuring for a benign abdomen and no CVA tenderness. Patient also denies abdominal pain, vomiting. No hematochezia, melena. Patient's symptoms likely due to gastroenteritis. Patient is tachycardic, likely due to dehydration from the diarrhea. Will obtain labs, give Zofran and IV fluids. Will reassess. Platelets low, consistent with patient history of methotrexate use. Labs otherwise within normal limits. Patient was tachycardic, likely due to dehydration. Patient's symptoms improved with Zofran, IV fluids. Will discharge home with Zofran. Recommend good hydration. Recommend brat diet. Recommend follow-up with PCP as soon as possible. ED return precautions were discussed with patient. Patient verbalized understanding. Medical records reviewed: Yes <Yuliana Zelaya, DO - Last Filed: 08/05/22 13:59> Lab Data Labs: Lab Results 08/05/22 08/05/22 08/05/22 Range/Units 09:50 09:50 09:50 WBC 5.4 (4.5-11.0) X10^3/uL RBC 4.88 (4.0-5.2) X10^6/uL Hgb 13.5 (12.0-16.0) g/dL Hct 39.6 (36-46) % MCV 81.1 (80-100) fL MCH 27.6 (26-34) PG MCHC 34.0 (30-36) % RDW 14.3 (11.6-14.8) % Plt Count 56 L (150-400) X10^3/uL Neut % (Auto) 80.0 H (50-75) % Lymph % (Auto) 15.9 L (25-40) % [place] % (Auto) 3.9 (3-14) % Eos % (Auto) 0.1 L (2-4) % Baso % (Auto) 0.1 (0-2) % Neut # (Auto) 4300 (5772-1278) /uL Lymph # (Auto) 900 L (1000-6876) /uL [place] # (Auto) 200 (0-900) /uL Eos # (Auto) 0 (0-450) /uL Baso # (Auto) 0 (0-100) /uL Sodium 135 L (137-145) mmol/L Potassium 3.9 (3.4-5.1) mmol/L Chloride 101 (98-107) mmol/L Carbon Dioxide 25 (22-32) mmol/L BUN 19 H (7-17) mg/dL Creatinine 0.73 (0.52-1.04) mg/dL Estimated GFR > 60 (>60) mL/min BUN/Creatinine Ratio 26.0 H (6-22) Glucose 125 H (80-110) mg/dL Lactate 1.7 (0.7-2.1) mmol/L Calcium 8.7 (8.4-10.2) mg/dL Total Bilirubin 1.2 (0.2-1.3) mg/dL AST 27 (14-36) IU/L ALT 22 (<35) IU/L Alkaline Phosphatase 111 (38-126) U/L Total Protein 7.1 (6.3-8.2) g/dL Albumin 3.9 (3.5-5.0) g/dL Globulin 3.2 (1.7-4.1) g/dL Albumin/Globulin Ratio 1.2 (1.0-2.8) Lipase 41 (23-300) U/L Discharge Plan Departure Patient Disposition: Home Clinical Impression: Gastroenteritis Instructions: DI for Viral Gastroenteritis -- Adult Activity Restrictions/Additional Instructions: You were evaluated in the ED today for diarrhea, fever. Your symptoms improved with IV fluids and Zofran. Your symptoms are most likely due to gastroenteritis from food poisoning. The diarrhea will run its course for the next few days. Please stay well hydrated to counter the diarrhea. You may also follow a BRAT diet consisting of bananas, rice, apples, toast. You may take Zofran as needed for the nausea. Please follow-up with your PCP as soon as possible. Please return to the ED if you have worsening symptoms, persistent vomiting, worsening diarrhea, unable to keep down fluids. Prescriptions: New ondansetron 4 mg tablet,disintegrating 4 mg PO Q8H PRN (Reason: nausea and vomiting) Qty: 14 0RF No Action cholecalciferol (vitamin D3) [Vitamin D3] 50 mcg (2,000 unit) Capsule 50 mcg PO DAILY Qty: 0 flaxseed oil 1,000 mg Capsule 1,000 mg PO DAILY Qty: 0 levothyroxine 75 mcg capsule 75 mcg PO DAILY Referrals: Letty Padgett MD [Primary Care Provider] - Stand Alone Forms: Patient Portal/API <Yuliana Zelaya DO - Last Filed: 08/05/22 13:59> Cosign ED Attending Cosjennyature Attestation: I was immediately available in the department for consultation. Documentation has been reviewed.
[2022-08-05 10:23] LABS: Add Manual Diff / Slide Review NO; Basophils Absolute Auto 0 /uL (0-100); Basophils Percent Auto 0.1 % (0-2); Eosinophils Absolute Auto 0 /uL (0-450); Eosinophils Percent Auto 0.1 % (2-4); Hematocrit 39.6 % (36-46); Hemoglobin 13.5 g/dL (12.0-16.0); Lymphocytes Absolute Auto 900 /uL (1100-4500); Lymphocytes Percent Auto 15.9 % (25-40); Mean Corpuscular Hemoglobin 27.6 PG (26-34); Mean Corpuscular Volume 81.1 fL (80-100); Monocytes Absolute Auto 200 /uL (0-900); Monocytes Percent Auto 3.9 % (3-14); Neutrophils Absolute Auto 4300 /uL (1500-7000); Platelet Count 56 X10^3/uL (150-400); Red Blood Cell Count 4.88 X10^6/uL (4.0-5.2); Red Cell Distribution Width 14.3 % (11.6-14.8); White Blood Cell Count 5.4 X10^3/uL (4.5-11.0)
[2022-08-05] MEDS: ONDANSETRON 4 MG/2 ML INJ IV (10:26)
[2022-08-05] MEDS: SODIUM CHLORIDE 0.9% 1,000 ML 1000 ML IV (10:26)
[2022-08-05 10:27] LABS: Alanine Aminotransferase 22 IU/L (<35); Albumin 3.9 g/dL (3.5-5.0); Albumin Globulin Ratio 1.2 (1.0-2.8); Alkaline Phosphatase 111 U/L (38-126); Aspartate Aminotransferase 27 IU/L (14-36); Bilirubin Total 1.2 mg/dL (0.2-1.3); Blood Urea Nitrogen 19 mg/dL (7-17); Calcium 8.7 mg/dL (8.4-10.2); Carbon Dioxide 25 mmol/L (22-32); Chloride 101 mmol/L (98-107); Estimated Glomerular Filt Rate > 60 mL/min (>60); Globulin 3.2 g/dL (1.7-4.1); Glucose 125 mg/dL (80-110); HEMOLYSIS < 15 (0-50); Lactate (Lactic Acid) 1.7 mmol/L (0.7-2.1); Lipase 41 U/L (23-300); Potassium 3.9 mmol/L (3.4-5.1); Sodium 135 mmol/L (137-145); Total Protein 7.1 g/dL (6.3-8.2)
== END 2022-08-05 12:29 | disposition home or self-care (01) ==
PROVIDERS: Emergency Provider Student in an Organized Health Care Education/Training Program; PCP Family Medicine
DX: K52.9 Noninfective gastroenteritis and colitis, unspecified (principal)
CPT/HCPCS: 36415; 80053; 83605; 83690; 85025; 96374; 99283; 99284; J2405

== ENCOUNTER → 2023-11-04 13:39 | Outpatient (CLI) | payer OTHER, SELFPAY ==
--- NOTE | 2023-11-04 13:41 | DI.US.S_ITS ---
PROCEDURE: US ABDOMEN COMPLETE INDICATIONS: MYELODYSPLASTIC SYNDROME,SPLENOMEGALY TECHNIQUE: Real-time scanning was performed of the abdominal and retroperitoneal organs, with image documentation. COMPARISON: None. FINDINGS: Liver: Liver is normal in size and homogeneous in echotexture. Hepatopetal flow is noted in the main portal vein. Main portal vein diameter 16 mm. Gallbladder: Sonolucent without evidence cholelithiasis, gallbladder wall thickening or pericholecystic fluid. No sonographic Manzano sign. Biliary ducts: Intrahepatic bile ducts are non-dilated. Extrahepatic bile duct caliber measures 5.8 mm. Normal is 6-7 mm or less in diameter, or 10 mm or less post-cholecystectomy. Pancreas: Visualized portions of the pancreas are sonographically normal. Spleen: The spleen is enlarged at 20.8 cm. No intrinsic mass lesion. Kidneys: Kidneys are normal in size and echotexture. Right kidney measures 9.7 cm long; left kidney measures 12.0 cm long. No hydronephrosis or nephrolithiasis. No solid masses. Small left renal cortical cyst Aorta: Visualized aorta is normal in caliber at less than 3 cm. Iliacs: Proximal common iliac arteries are normal in caliber at less than 2.5 cm. IVC: Intrahepatic inferior vena cava is patent. Miscellaneous: No free abdominal fluid. IMPRESSION: Splenomegaly, 20.8 cm Approved by: Keyon Fields M.D. on 11/04/2023 at 15:48
== END ==
PROVIDERS: PCP Family Medicine; Referring Provider Family Medicine; Visit Provider Family Medicine
DX: D46.9 Myelodysplastic syndrome, unspecified (principal); R16.1 Splenomegaly, not elsewhere classified
CPT/HCPCS: 76700